=== PATIENT | female | born 1970 | race Caucasian/White ===

== ENCOUNTER 2024-12-26 11:14 | Day surgery (SDC) | payer OTHER, SELFPAY ==
[2024-12-26] VITALS (9 sets, daily range): BP systolic 108–141; BP diastolic 75–106; PULSE 70–109; RESP 12–18; TEMP 36.2–36.9; O2SAT 97–100; BMI 27.1
[2024-12-26 11:45] LABS: Internal QC Validated? YES +Cl - CLEAR BKGD; Pregnancy, Urine Negative Negative; Record Kit Lot#,Urine Preg 000947241
[2024-12-26] MEDS: Lactated Ringers 1,000 ML 15 ML IV (12:38)
[2024-12-26] MEDS: Lidocaine 1% (5 ml sdv) 5 ML Vial IV (13:13)
== END 2024-12-26 14:39 | disposition home or self-care (01) ==
LOC: EN 11:17 → AC 11:18
PROVIDERS: Anesthesiology; PCP Family Medicine; Referring Provider Family Medicine; Visit Provider Surgery
PROC: 0DJD8ZZ Inspection of Lower Intestinal Tract, Via Natural or Artificial Opening Endoscopic (ICD-10-PCS; CPT 45378; principal; 2024-12-26 12:10)
DX: Z12.11 Encounter for screening for malignant neoplasm of colon (principal); I10 Essential (primary) hypertension; F32.A Depression, unspecified; F41.9 Anxiety disorder, unspecified; Z79.899 Other long term (current) drug therapy
CPT/HCPCS: 45378; 81025